=== PATIENT | female | born 1945 | race Caucasian/White ===

== ENCOUNTER → 2018-04-04 08:25 | Outpatient (CLI) | payer MEDICARE, SELFPAY ==
--- NOTE | 2018-04-04 08:30 | BI_ITS ---
MAMMOGRAPHY - BILATERAL SCREENING REASON FOR EXAM: Female, 72 years old. Routine annual screening examination. PERTINENT HISTORY: Remote right excisional breast biopsy and right stereotactic breast biopsy. TECHNIQUE: Digital bilateral breast juan (3D mammographic acquisition) in the CC and MLO projections. 2-D mediolateral oblique (MLO) and craniocaudad (CC) views of both breasts were obtained. CAD: Full Field Digital Mammography with Computer Added Detection was performed. COMPARISON: Comparison is made with prior study dated April 03, 2017 and March 31, 2016. FINDINGS: Breast Composition: The breasts are heterogeneously dense, which may obscure small masses. There are no dominant masses or suspicious calcifications. Stable benign-appearing bilateral axillary lymph nodes. No other significant abnormalities are identified. There has been no significant change since the prior study. BI/SCREENING MAMM (CAD), BILAT IMPRESSION: Stable bilateral screening mammogram. Yearly follow-up mammogram recommended. (A) ASSESSMENT CATEGORY: BIRADS Category 2: Benign. A letter regarding these results will be sent to the patient by the facility within 30 days. Approximately 10% of breast cancers are not detected by mammography. A normal mammogram should not delay biopsy of a clinically suspicious abnormality. [id number] Electronically Signed: Javier Hickman MD at 9:46 EST Tel [phone], Service support ,
== END ==
PROVIDERS: Family Provider Internal Medicine; PCP Internal Medicine; Visit Provider Obstetrics & Gynecology
DX: Z12.31 Encounter for screening mammogram for malignant neoplasm of breast (principal)
CPT/HCPCS: 77063; 77067

== ENCOUNTER → 2019-04-15 | Outpatient (CLI) | payer MEDICARE, SELFPAY ==
--- NOTE | 2019-04-15 13:08 | BI_ITS ---
MAMMOGRAPHY - BILATERAL SCREENING REASON FOR EXAM: Female, 73 years old. Routine annual screening examination. PERTINENT HISTORY: Non-contributory. Remote right excisional and stereotactic breast biopsies. TECHNIQUE: Digital bilateral breast juan (3D mammographic acquisition) in the CC and MLO projections. 2-D mediolateral oblique (MLO) and craniocaudad (CC) views of both breasts were obtained. CAD: Full Field Digital Mammography with Computer Added Detection was performed. COMPARISON: Comparison is made with prior study dated April 04, 2018 and April 03, 2017. FINDINGS: Breast Composition: The breasts are heterogeneously dense, which may obscure small masses. There is a 9 mm x 8.1 mm well-defined nodule in the upper lateral aspect of the right breast. Correlation with ultrasound is recommended. Stable benign-appearing bilateral axillary lymph nodes. No other significant abnormalities are identified. BI/SCREENING MAMM (CAD), BILAT IMPRESSION: 9 mm x 8.1 mm well-defined nodule in the upper lateral aspect of the right breast. Correlation with ultrasound is recommended. ASSESSMENT CATEGORY: BIRADS Category 0: Incomplete. Need additional imaging evaluation. A letter regarding these results will be sent to the patient by the facility within 30 days. Approximately 10% of breast cancers are not detected by mammography. A normal mammogram should not delay biopsy of a clinically suspicious abnormality. [id number] Electronically Signed: Javier Hickman, at 14:41 EST , Service support ,
== END | disposition home or self-care (01) ==
LOC: OPBI 13:01
PROVIDERS: Family Provider Internal Medicine; PCP Internal Medicine; Referring Provider Obstetrics & Gynecology; Visit Provider Obstetrics & Gynecology
DX: Z12.31 Encounter for screening mammogram for malignant neoplasm of breast (principal)
CPT/HCPCS: 77067

== ENCOUNTER → 2019-04-19 12:12 | Outpatient (CLI) | payer MEDICARE, SELFPAY ==
--- NOTE | 2019-04-19 12:14 | US_ITS ---
STUDY: ULTRASOUND BREAST - RIGHT REASON FOR EXAM: Female, 73 years old. TECHNIQUE: Axial and longitudinal images of the RIGHT breast were performed with a high resolution ultrasound transducer. # OF IMAGES: 15 COMPARISON: None. FINDINGS: RIGHT Breast: There are 2 small cysts around 10:00 o'clock, 7 cm from the nipple the first one measures 0.8 x 0.8 x 0.5 cm the second smaller one measures 0.3 x 0.3 x 0.4 cm. Otherwise no masses or cysts are identified. Normal appearance of the fibroglandular tissue. US/Breast Limited Unilateral IMPRESSION: 2 small cysts adjacent to each other at 10:00 o'clock as described above. Electronically Signed: Tarun Najera, at 11:13 EST Tel , Service support ,
== END ==
PROVIDERS: Family Provider Internal Medicine; PCP Internal Medicine; Referring Provider Obstetrics & Gynecology; Visit Provider Obstetrics & Gynecology
DX: R92.8 Other abnormal and inconclusive findings on diagnostic imaging of breast (principal)
CPT/HCPCS: 76642

== ENCOUNTER → 2020-05-12 12:27 | Outpatient (CLI) | payer MEDICARE, SELFPAY ==
--- NOTE | 2020-05-12 12:29 | BI_ITS ---
MAMMOGRAPHY - BILATERAL SCREENING REASON FOR EXAM: Female, 74 years old. Routine annual screening examination. PERTINENT HISTORY: Non-contributory. Remote right excisional and stereotactic breast biopsies. TECHNIQUE: Digital bilateral breast billy (3D mammographic acquisition) in the CC and MLO projections. 2-D mediolateral oblique (MLO) and craniocaudad (CC) views of both breasts were obtained. CAD: Full Field Digital Mammography with Computer Added Detection was performed. COMPARISON: Comparison is made with prior study dated 04/15/2019 and 04/04/2018. FINDINGS: Breast Composition: The breasts are heterogeneously dense, which may obscure small masses. There are no dominant masses or suspicious calcifications. The previously seen 8.1 mm x 9 mm defined nodule in the upper outer aspect of the right breast is not seen at this time. No other significant abnormalities are identified. BI/SCREEN MAMM (CAD) W/BILLY BILAT IMPRESSION: Stable bilateral screening mammogram. Yearly follow-up mammogram recommended. (A) ASSESSMENT CATEGORY: BIRADS Category 2: Benign. A letter regarding these results will be sent to the patient by the facility within 30 days. Approximately 10% of breast cancers are not detected by mammography. A normal mammogram should not delay biopsy of a clinically suspicious abnormality. [id number] Electronically Signed: Javier Hickman, at 14:12 EST , Service support ,
== END ==
PROVIDERS: PCP Internal Medicine; Referring Provider Student in an Organized Health Care Education/Training Program; Visit Provider Student in an Organized Health Care Education/Training Program
DX: Z12.31 Encounter for screening mammogram for malignant neoplasm of breast (principal)
CPT/HCPCS: 77063; 77067

== ENCOUNTER → 2021-05-07 13:48 | Outpatient (CLI) | payer MEDICARE, SELFPAY ==
--- NOTE | 2021-05-07 13:50 | BI_ITS ---
MAMMOGRAPHY - BILATERAL SCREENING REASON FOR EXAM: Female, 75 years old. Routine annual screening examination. PERTINENT HISTORY: Non-contributory. Remote right excisional breast biopsy and right stereotactic breast biopsy. TECHNIQUE: Digital bilateral breast billy (3D mammographic acquisition) in the CC and MLO projections. 2-D mediolateral oblique (MLO) and craniocaudad (CC) views of both breasts were obtained. CAD: Full Field Digital Mammography with Computer Added Detection was performed. COMPARISON: Comparison is made with prior examination of 05/12/2020 and 04/15/2019. FINDINGS: Breast Composition: The breasts are heterogeneously dense, which may obscure small masses. There are no dominant masses or suspicious calcifications. Stable small benign appearing bilateral axillary lymph nodes. No other significant abnormalities are identified. There has been no significant change since the prior study. BI/SCRN MAMM (CAD)W/BILLY BILAT IMPRESSION: Stable bilateral screening mammogram. Yearly follow-up mammogram recommended. (A) ASSESSMENT CATEGORY: BIRADS Category 2: Benign. A letter regarding these results will be sent to the patient by the facility within 30 days. Approximately 10% of breast cancers are not detected by mammography. A normal mammogram should not delay biopsy of a clinically suspicious abnormality. [id number] Electronically Signed: Javier Hickman MD at 14:57 EST , Service support ,
== END ==
PROVIDERS: PCP Internal Medicine; Referring Provider Student in an Organized Health Care Education/Training Program; Visit Provider Student in an Organized Health Care Education/Training Program
DX: Z12.31 Encounter for screening mammogram for malignant neoplasm of breast (principal)
CPT/HCPCS: 77063; 77067

== ENCOUNTER → 2022-05-05 | Outpatient (CLI) | payer MEDICARE, SELFPAY ==
--- NOTE | 2022-05-05 14:10 | VUL_PTH ---
PATIENT: EVER BUNCH LOC: [facility] U#:[id number] AGE/SX: 76/F ROOM: RE05/05/[address]: Dr. Roslyn Garcia DO : 1945 BED: DIS: 05/05/2022 SPEC #: [id number] RECD: 05/05/22 17:09 STATUS: CHEN REChepe #: [id number] MICAH: 05/05/22 14:[address]: Roslyn Garcia DEPT: SURGICAL PATHOLOGY RECD BY: Florencia Robles ENTERED: 05/06/22 08:40 SP TYPE: VULVA BX ULI DR: Dr. Maria G Prieto MD Tissues: Vulva, NOS Procedures: Surgery Specimen Level IV HEADER OPERATION: Vulvar biopsy PRE-OP DIAGNOSIS: Leukoplakia of vulva TISSUE SUBMITTED: Vulvar biopsy MICROSCOPIC DIAGNOSIS Vulva, biopsy: Consistent with condyloma. Extensive hyperkeratosis. Negative for dysplasia or malignancy. SJ:delaney 05/09/2022 COMMENT Case has been reviewed in consultation with Dr. Monsivais who concurs with the above diagnosis. IDC:AM MICROSCOPIC DESCRIPTION Slides are reviewed. GROSS DESCRIPTION Received in fixative is one container labeled with the patient's name and designated vulvar biopsy. The specimen consists of one irregular fragment of light chris soft tissue that measures 0.2 x 0.2 x 0.1 cm. The specimen is totally submitted in one cassette. / AM:delaney 04/06/2022 TC:5 CPT: 77282
== END | disposition home or self-care (01) ==
LOC: LABSPEC 14:16
PROVIDERS: PCP Internal Medicine; Visit Provider Student in an Organized Health Care Education/Training Program
DX: N90.4 Leukoplakia of vulva (principal)
CPT/HCPCS: 88305

== ENCOUNTER → 2022-05-11 | Outpatient (CLI) | payer MEDICARE, SELFPAY ==
--- NOTE | 2022-05-11 13:51 | BI_ITS ---
MAMMOGRAPHY - BILATERAL SCREENING REASON FOR EXAM: Female, 76 years old. Routine annual screening examination. PERTINENT HISTORY: Non-contributory. Prior right excisional breast biopsy and right stereotactic breast biopsy. TECHNIQUE: Digital bilateral breast billy (3D mammographic acquisition) in the CC and MLO projections. 2-D mediolateral oblique (MLO) and craniocaudad (CC) views of both breasts were obtained. CAD: Full Field Digital Mammography with Computer Added Detection was performed. COMPARISON: Comparison is made with prior examination dated 05/07/2021 and 05/12/2020. FINDINGS: Breast Composition: The breasts are heterogeneously dense, which may obscure small masses. There are no dominant masses or suspicious calcifications. Stable bilateral fat-containing lymph nodes. Mild degree of the architectural distortion in the retroareolar region of the right breast in keeping with the patient''s history of prior excisional breast biopsy. No other significant abnormalities are identified. There has been no significant change since the prior study. BI/SCRN MAMM (CAD)W/BILLY BILAT IMPRESSION: Stable bilateral screening mammogram. Yearly follow-up mammogram recommended. (A) ASSESSMENT CATEGORY: BIRADS Category 2: Benign. A letter regarding these results will be sent to the patient by the facility within 30 days. Approximately 10% of breast cancers are not detected by mammography. A normal mammogram should not delay biopsy of a clinically suspicious abnormality. [id number] Electronically Signed: Javier Hickman MD at 14:54 EST ,
== END | disposition home or self-care (01) ==
LOC: OPBI 13:35
PROVIDERS: PCP Internal Medicine; Visit Provider Student in an Organized Health Care Education/Training Program
DX: Z12.31 Encounter for screening mammogram for malignant neoplasm of breast (principal)
CPT/HCPCS: 77063; 77067

== ENCOUNTER 2022-12-15 06:40 | Day surgery (SDC) | payer MEDICARE, SELFPAY ==
[2022-12-13 13:59] LABS: Hematocrit 36.2 % (37-47); Hemoglobin 9.9 g/dL (12.0-15.0); Mean Corp Hgb Conc 27.3 g/dL (32-36); Mean Corpuscular Hgb 21.9 pg (27.0-32.0); Mean Corpuscular Volume 79.9 fL (81-99); Mean Platelet Vol. 9.7 fl (6.2-12.0); POSITIVE COUNT YES; POSITIVE MORPHOLOGY YES; RBC Distribution Width CV 20.3 % (11.6-14.6); Red Blood Count 4.53 M/mm3 (4.2-5.4)
[2022-12-13 14:10] LABS: Platelet Count 901 K/mm3 (150-450); Scan Indicated on CBC? Y/N YES- FLAGS NOTED
[2022-12-14 10:53] LABS: POSITIVE COUNT YES; Platelet Count 817 K/mm3 (150-450)
[2022-12-14 11:25] LABS: Differential Indicated SCAN CRITERIA MET
[2022-12-15] VITALS (10 sets, daily range): BP systolic 95–133; BP diastolic 48–67; PULSE 50–58; RESP 16; TEMP 36.6–37.2; O2SAT 94–99; BMI 82.1
--- NOTE | 2022-12-15 06:50 | PCM.HP.BLA ---
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 [employer] history: G2, P2 Medical history: 1. Hypertension 2. Diabetes 3. Hypercholesterolemia 4. Allergies 5. Arthritis Surgical history: 1. Breast lumpectomy in 1999 2. Hernia repair, multiples with reconstruction 3. Abdominal hysterectomy in 1999 4. [place] tooth extraction 1967 5. Partial removal of pancreas in 2020 Allergies: 1. Acetaminophen and oxycodone and Roxicet 2. Penicillins cause anaphylaxis/angioedema 3. Augmentin causes diarrhea Medications: 1. Aspirin 81 mg 2. Calcium 3. Carvedilol 4. Cetirizine 5. Jardiance 6. Losartan 7. Metformin 8. Multivitamin 9. Omeprazole 10. Simvastatin Family history: Denies history of blood clots or bleeding disorders, noncontributory Social history: Denies alcohol, tobacco, drug use Review of system: Negative otherwise stated above Physical exam: Vitals: General: No acute distress HEENT: Normal cephalic/atraumatic, PERRLA Cardiorespiratory: No increased effort, regular rate and rhythm, no murmurs rubs or gallops. 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 All risk, benefits, alternatives discussed with patient. Risk include but are not limited to bleeding to the point of transfusion, infection, injury to surrounding tissue including bowel/bladder, VTE, ICU admission. Patient did receive preoperative antibiotics. Of note patient does have recent diagnosis of thrombocytosis, should not interfere with current surgery. Will need follow-up with primary care physician.
[2022-12-15] MEDS: Clindamycin 900 MG/50 ML BAG 75 MG IV (07:46)
[2022-12-15] MEDS: Lactated Ringers 1,000 ML 15 ML IV (07:46)
--- NOTE | 2022-12-15 08:25 | VUL_PTH ---
PATIENT: EVER BUNCH [place] [facility] [place][id number] AGE/SX: 77/F ROOM: RE12/15/[address]: Dr. Roslyn Garcia DO : 1945 BED: DIS: 12/15/2022 SPEC #: [id number] RECD: 12/15/22 10:40 STATUS: CHEN REChepe #: [id number] MICAH: 12/15/22 08:[address]: Roslyn Garcia DEPT: SURGICAL PATHOLOGY RECD BY: Florencia Robles ENTERED: 12/15/22 11:58 SP TYPE: VULVA BX OTHR DR: Dr. Maria G Prieto MD Tissues: A - Labium, NOS B - Mons pubis C - Skin of perineum and lower extremities, NOS Procedures: Special Stain Group I Surgery Specimen Level III Surgery Specimen Level IV GMS Stain (control) HEADER OPERATION: Excision skin tags and biopsies PRE-OP DIAGNOSIS: Vulvar condyloma and skin damage TISSUE SUBMITTED: A - Right labial biopsy, B - Mons biopsy, C - Skin tags perineal MICROSCOPIC DIAGNOSIS A. Right labial biopsy: Mild acute and chronic inflammation, hyperkeratosis and parakeratosis. Negative for dysplasia or malignancy. See comment. B. Corey, biopsy: Seborrheic keratosis. C. Skin tags perineal, excision: Fibroepithelial polyps (skin tags). SJ:rg 12/16/2022 COMMENT A. Special stain for fungi is negative for organisms; matched control is appropriate. MICROSCOPIC DESCRIPTION Slides are reviewed. GROSS DESCRIPTION A - Received in fixative is one container labeled with the patient's name and designated right labial biopsy. The specimen consists of a piece of chris-white skin measuring 1.0 x 0.5 x 0.2 cm. The specimen is inked, serially sectioned and submitted entirely in one cassette. B - Received in fixative is one container labeled with the patient's name and designated mons biopsy. The specimen consists of a piece of chris-white skin measuring 0.9 x 0.4 x 0.2 cm. The specimen is inked, bisected and submitted entirely in one cassette. C - Received in fixative is one container labeled with the patient's name and designated perineal skin tag. The specimen consists of multiple polypoid pieces of chris-white skin that in aggregate measure 1.0 x 0.3 x 0.1 cm and 0.2 to 0.3 cm in greatest dimension. The entire specimen is submitted in one cassette. / SJ:delaney 12/15/2022 TC:1 CPT: 55089 x2, 43693, 29455
--- NOTE | 2022-12-15 09:05 | OP.PCM_ITS ---
Report of Operation Date of Procedure: 12/15/22 Pre-Operative Diagnosis: Vulvar condyloma Post-Operative Diagnosis: Vulvar condyloma, skin tags, mole Surgery/Procedure Performed:: Excision of skin tags and vulvar biopsies Description of Surgical Findings:: Erythematous vulva, perineum, perianal region. Resolution of right labial condyloma. Multiple groin skin tags. 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 All risk, benefits, alternatives discussed with patient. Risk include but are not limited to bleeding to the point of transfusion, infection, injury to surrounding tissue including bowel/bladder, VTE, ICU admission. Patient did receive preoperative antibiotics. Procedure: Patient taken to the operating room and MAC anesthesia induced. Patient placed in the dorsal lithotomy position prepped and draped in the usual sterile fashion. Findings noted above. Skin tag was grasped with Adson's and removed using Metzenbaum scissors and bilateral groin. Mons lesion excised in an elliptical incision using a scalpel. Closed with a running stitch, hemostatic. Elliptical incision made at the right labia majora near the introitus, made with scalpel. Biopsy bed closed with a running stitch. Hemostatic. Skin tag bases all hemostatic. At the end of the procedure all needle, lap, sponge counts were correct. UOP: none measured Complications None Admit VTE Documentation VTE Mechan Device Prophylaxis: SCD's
--- NOTE | 2022-12-15 09:05 | DCINST_ITS ---
Discharge Instructions Diet Discharge Diet: No restrictions Activity Discharge Activity: Return to Normal Activity and May Shower May resume sexual activity in: 2 weeks Weight Bearing Status: Weight bearing as tolerated Lifting Restrictions: None Dressing / Incision Call your doctor if your incision/area has: Continuous Slow Oozing, Increased Pain/ Swelling, Increased Redness and Foul Smelling Discharge Call your doctor if you observe: Fever of 101 or Higher, Change in Color, Inability to urinate, Using more than 1 pad per hour, Shortness of breath, Dizziness, Swelling in the ankles, Chest pain and Calf discomfort Cleanse incision/area with: Soap & Water and Keep Dressing Clean & Dry Follow Up Care Please Follow Up With: Roslyn Garcia DO When: 1-2 week postoperative visit Test Results: Test results from this visit will be discussed in further detail at your follow- up appointment, if applicable. Discharge Plan Admission Primary Reason for Your Visit: Vulvar biopsies Attending Provider: Roslyn Garcia Primary Care Provider: Maria G Prieto Discharge Orders/Prescriptions Prescriptions: No Action carvedilol 12.5 mg tablet 12.5 mg PO Q12H losartan 50 mg tablet 50 mg PO DAILY Jardiance 10 mg tablet 10 mg PO DAILY metformin 500 mg tablet 500 mg PO BID omeprazole 20 mg capsule,delayed release(DR/EC) 20 mg PO DAILY simvastatin 40 mg tablet 40 mg PO DAILY aspirin 81 mg capsule 81 mg PO DAILY All Day Allergy (cetirizine) 10 mg capsule 10 mg PO DAILY calcium 500 mg tablet 500 mg PO DAILY multivitamin [Daily Multi-Vitamin] Tablet 1 tab PO DAILY Hair, Skin and Nails (biotin) 10,000 mcg tablet,chewable 10,000 mcg PO DAILY Referrals / Follow Up: Maria G Prieto MD [Primary Care Provider] - Disposition Disposition (needs filled in before D/C Order can be placed): Home, Self Care
[2022-12-15 09:19] LABS: Pathologist Review Reviewed
[2022-12-16 13:28] LABS: Pathologist Review Reviewed
== END 2022-12-15 11:16 | disposition home or self-care (01) ==
LOC: SDC 06:41 → AC 06:43
PROVIDERS: PCP Internal Medicine; Referring Provider Student in an Organized Health Care Education/Training Program; Visit Provider Student in an Organized Health Care Education/Training Program
PROC: (CPT 57410; principal; 2022-12-15 08:15)
DX: A63.0 Anogenital (venereal) warts (principal); E11.9 Type 2 diabetes mellitus without complications; N76.3 Subacute and chronic vulvitis; L82.1 Other seborrheic keratosis; L91.8 Other hypertrophic disorders of the skin; R23.4 Changes in skin texture; I10 Essential (primary) hypertension; E78.00 Pure hypercholesterolemia, unspecified; Z79.82 Long term (current) use of aspirin; Z79.84 Long term (current) use of oral hypoglycemic drugs; Z79.899 Other long term (current) drug therapy; M19.90 Unspecified osteoarthritis, unspecified site; K21.9 Gastro-esophageal reflux disease without esophagitis
CPT/HCPCS: 11200; 56605; 56606; 36415; 85027; 85049; 86850; 86900; 86901; 88304; 88305; 88312; J7120; J2405